=== PATIENT | female | born 1955 | race Caucasian/White ===

== ENCOUNTER 2017-09-12 13:24 | Emergency (ER) | payer BC ==
--- NOTE | 2017-09-12 15:24 | EDPHY ---
H & P Time Seen by Provider: 09/12/17 15:05 HPI/ROS: CHIEF COMPLAINT: Constipation HISTORY OF PRESENT ILLNESS: The patient is a 62 y/o female with chronic back pain presents with no BM for the past 10 days. h/o chronic constipation, worse for 10 days. Associated with constant and moderate pain in the upper left quadrant on her abdomen onset yesterday. Her primary care provider advised she present to the ED due to the abdominal pain. She denies fever, vomiting, or other associated symptoms. She has tried suppositories, water, Miralax, and high fiber diet without success. REVIEW OF SYSTEMS: Constitutional: No fever, no chills Eyes: No visual changes ENT: No sore throat Respiratory: No cough, no shortness of breath Cardiac: No chest pain Gastrointestinal: No nausea, no vomiting Genitourinary: No hematuria, no dysuria Musculoskeletal: No leg pain or swelling Skin: No rash Neurological: No headache, no weakness Psychiatric: No depression Past Medical/Surgical History: Breast CA, splenectomy, chronic LBP/lumbar fusion, chronic constipation Social History: , lives in [place], retired Smoking Status: Never smoked Physical Exam: General Appearance: Alert, pleasant Eyes: Pupils equal and round, no conjunctival pallor ENT, Mouth: Mucous membranes moist Neck: Normal inspection Respiratory: Lungs are clear to auscultation Cardiovascular: Regular rate and rhythm Gastrointestinal: Left upper quadrant tenderness, abdomen is soft, nl BS Neurological: A&O, nonfocal, normal gait Skin: Warm and dry Extremities: normal inspection Psychiatric: Mood and affect normal Constitutional: Initial Vital Signs Temperature (C) 36.6 C 09/12/17 13:28 Heart Rate 60 09/12/17 13:28 Respiratory Rate 16 09/12/17 13:28 Blood Pressure 105/73 09/12/17 13:28 O2 Sat (%) 97 09/12/17 13:28 O2 Delivery Mode Room Air Allergies/Adverse Reactions: No Allergies [NKA] Allergy (Verified 09/12/17 13:26) Home Medications: Medication Instructions Recorded Escitalopram Oxalate [Lexapro 10 10 mg PO DAILY 03/26/13 MG] clonazePAM [klonoPIN (*)] 0.5 mg PO DAILY 03/26/13 morphINE SR [Ms Contin/Oramorph 15 15 mg PO BID 03/26/13 mg (*)] Polyethylene Glycol 3350 [Miralax 17 gm PO DAILY 11/03/14 17 gm (*)] FLORASTOR 09/12/17 Medical Decision Making - Diagnostics Imaging Results: CT abd/pelvis, Dr. Batista, constipation, NAD ED Course/Re-evaluation: The patient is a 62 y/o female complaining of constipation for the past 10 days and upper left quadrant pain onset yesterday. She has not had a bowel movement is 10 days with only small soft stools despite increased water intake, Miralax, suppositories, and high fiber diet. Plan for soapsuds enema. 1632: She had a bowel movement after the enema but still has left upper quadrant pain. She reveals concern that she may have a recurrence of cancer. Plan for CT of the abdomen and pelvis. 6:45 p.m.-CT results discussed with the patient. LLQ pain most likely secondary to constipation. She is greatly relieved. She took magnesium citrate. She was sent home with [facility] if the magnesium citrate does not work. She will follow up with her primary care physician if the left upper quadrant pain persists. Differential Diagnosis: The differential diagnosis for the patient's abdominal pain included but was not limited to constipation, musculoskeletal injury, ovarian cyst, pelvic inflammatory disease, ovarian torsion, urinary tract infection, ectopic , cholecystitis, and appendicitis. - Data Points Laboratory Results: Laboratory Results 09/12/17 17:25 09/12/17 17:25 Medications Given: Discontinued Medications Sodium Chloride (Ns) 1,000 mls @ 0 mls/hr IV ONCE ONE PRN Reason: Wide Open Stop: 09/12/17 17:35 Last Admin: 09/12/17 17:36 Dose: 1,000 mls Magnesium Citrate (Magnesium Citrate) 300 ml PO EDNOW ONE Stop: 09/12/17 18:12 Last Admin: 09/12/17 18:18 Dose: 300 ml Polyethylene Glycol/Electrolytes (Gavilyte - G) 4,000 ml PO ONCE ONE Stop: 09/12/17 18:31 Last Admin: 09/12/17 18:48 Dose: 4,000 ml Departure - Departure Disposition: Home, Routine, Self-Care Clinical Impression: Abdominal pain Qualifiers: Abdominal location: left upper quadrant Qualified Code(s): R10.12 - Left upper quadrant pain Constipation Qualifiers: Constipation type: drug induced constipation Qualified Code(s): K59.03 - Drug induced constipation Condition: Good Instructions: Constipation (ED), Acute Abdominal Pain (ED) Additional Instructions: Return for worsening pain, fever, any concerns. If you do not have a BM in 12-24hrs, use the [employer] as directed. Followup with your PCP. Referrals: Nadege Flynn MD [Primary Care Provider] - As per Instructions Report Scribed for: Suzie Altamirano Report Scribed by: Tosin Schmitz Date of Report: 09/12/17 Time of Report: 15:24 Physician Review and Approval Statement: 09/12/17 15:24 Portions of this note were transcribed by a medical malpractice paralegal. I personally performed a history, physical exam, medical decision making, and confirmed accuracy of information the transcribed note.
[2017-09-12 17:19] VITALS: PULSE 52
[2017-09-12] MEDS ORDERED: NS 1,000 ML IV ONE (17:34)
[2017-09-12] MEDS ORDERED: IOPAMIDOL (ISOVUE-300) 100 ML BTL ONE (17:40)
[2017-09-12 18:01] LABS: % IMMATURE GRANULYOCYTES 0.1 % (0.0-1.1); ABSOLUTE IMMATURE GRANULOCYTES 0.01 10^3/uL (0.00-0.10); ADD DIFF? NO; ADD MORPH? NO; ADD SCAN? NO; ATYPICAL LYMPHOCYTE FLAG 0 (0-99); FRAGMENT RBC FLAG 0 (0-99); HEMATOCRIT 37.7 % (38.0-47.0); HEMOGLOBIN 12.9 g/dL (12.6-16.3); LEFT SHIFT FLG 0 (0-99); LIPEMIA HEMOLYSIS FLAG 90 (0-99); MEAN CELL HEMOGLOBIN 31.4 pg (27.9-34.1); MEAN CELL HEMOGLOBIN CONCENTR. 34.2 g/dL (32.4-36.7); MEAN CELL VOLUME 91.7 fL (81.5-99.8); MEAN PLATELET VOLUME 9.7 fL (8.7-11.7); PLATELET CLUMPS FLAG 10 (0-99); PLATELET COUNT 289 10^3/uL (150-400); RED BLOOD CELL COUNT 4.11 10^6/uL (4.18-5.33); RED CELL DISTRIBUTION WIDTH 14.5 % (11.5-15.2)
[2017-09-12 18:09] LABS: ANION GAP 11 mEq/L (8-16); CALCIUM 9.3 mg/dL (8.5-10.4); CARBON DIOXIDE 24 mEq/l (22-31); CHLORIDE 101 mEq/L (97-110); CREATININE 0.7 mg/dL (0.6-1.0); GLOMERULAR FILTRATION RATE > 60; GLUCOSE 101 mg/dL (70-100); POTASSIUM 4.3 mEq/L (3.5-5.2); SODIUM 136 mEq/L (134-144)
[2017-09-12] MEDS ORDERED: MAGNESIUM CITRATE 300 ML BOTTLE PO ONE (18:11)
[2017-09-12] MEDS ORDERED: PEG 3350/NA SULF,BICARB,CL/KCL (GAVILYTE-G) 4000 ML BTL PO ONE (18:30)
[2017-09-12 18:49] VITALS: BP 115/74; RESP 18; TEMP 98.4; O2SAT 100
== END 2017-09-12 18:55 | disposition home or self-care (01) ==
DX: K59.03 Drug induced constipation (principal); Z85.3 Personal history of malignant neoplasm of breast
CPT/HCPCS: 82947-QW; Q9967